=== PATIENT | female | born 1985 | race Two or more races ===

== ENCOUNTER 2018-05-17 06:59 | Emergency (ER) | payer OTHER ==
[~2018-05-17] VITALS: Ht 162.6 cm; Wt 55.4 kg
[2018-05-17] MEDS ORDERED: OXYMETAZOLINE NASAL SPRAY 0.05%,30ML ONE (07:29)
--- NOTE | 2018-05-17 07:43 | NUR ---
PT REPORTS TURBINATE SURG/TONSILLECTOMY 2 WEEKS AGO AND STARTED HAVING A NOSE BLEED YESTERDAY. MD AT BEDSIDE.
[2018-05-17] MEDS ORDERED: PHENYLEPHRINE NASAL 1%, 30ML DROPS NAS ONE (08:00)
[2018-05-17] MEDS ORDERED: PHENYLEPHRINE 10 MG/ML ONE (08:32)
--- NOTE | 2018-05-17 08:39 | NUR ---
CALLED PHARMACY AND ASKED THEM TO SEND NEOSYNEPHRINE DROPS. THEY WILL SEND IT.
--- NOTE | 2018-05-17 09:00 | NUR ---
PT IS RESTING IN BED, NO PACKING IN NOSE, BLEEDING IS CONTROLLED. PT IS ALERT, ORIENTED, WITH NAD. PT IS CONNECTED TO THE MONITOR. CALL LIGHT WITHIN REACH.
[2018-05-17] MEDS ORDERED: OXYcodone/APAP 5/325MG TABLET ONE (09:22)
[2018-05-17] MEDS ORDERED: OXYcodone/APAP 5/325MG TABLET PO ONE (09:30)
--- NOTE | 2018-05-17 09:33 | NUR ---
BREAK RN: PT MEDICATED FOR 10/10 PAIN ORDERED. REPORT TO FIORDALIZA MADDOX.
[2018-05-17 09:59] VITALS: BP 143/86
--- NOTE | 2018-05-17 11:33 | NUR ---
Patient given discharge instructions and they have confirmed that they understand the instructions. Patient ambulatory with steady gait.
== END 2018-05-17 11:35 | disposition home or self-care (01) ==
LOC: ED 10:54
DX: R04.0 Epistaxis (principal)
CPT/HCPCS: 30905; 99284

== ENCOUNTER 2019-12-24 05:43 | Day surgery (SDC) | payer OTHER ==
[~2019-12-24] VITALS: Ht 160 cm; Wt 58.0 kg
[2019-12-24 06:35] VITALS: BP 118/84
[2019-12-24] MEDS ORDERED: OXYMETAZOLINE NASAL SPRAY 0.05%, 15ML ONE (06:47)
[2019-12-24] MEDS ORDERED: BACITRACIN OINT 500U/GM, 15 GM ONE (06:47)
[2019-12-24] MEDS ORDERED: LIDOCAINE/PF 1%-EPI 1:200K, 30 ML ONE (06:47)
[2019-12-24 06:53] LABS: HCG UR SG 1.023 (1.003-1.030)
[2019-12-24] MEDS ORDERED: CHLORHEXIDINE 15 ML UDC MM ONE (07:00)
[2019-12-24] MEDS ORDERED: LACTATED RINGERS 1,000 ML IV SCH (07:00)
[2019-12-24] MEDS ORDERED: PROP20TA PO (07:01)
[2019-12-24] MEDS ORDERED: MIDAZOLAM 1 MG/ML, 2ML ONE (07:14)
[2019-12-24] MEDS ORDERED: FENTANYL PF 100 MCG/2ML ONE (07:14)
[2019-12-24] MEDS ORDERED: LABETALOL 5MG/ML, 20ML IV PRN (07:30)
[2019-12-24] MEDS ORDERED: OXYcodone 5 MG/5 ML ORAL.SOL UDC PO PRN (07:30)
[2019-12-24] MEDS ORDERED: PROMETHAZINE 25 MG/ML, 1ML IVPush PRN (07:30)
[2019-12-24] MEDS ORDERED: HYDROmorphone 1 MG/ML, 1ML INJ IVPush PRN (07:30)
[2019-12-24] MEDS ORDERED: EPHEDRINE 50 MG/ML, 1ML IVPush PRN (07:30)
[2019-12-24] MEDS ORDERED: FENTANYL PF 100 MCG/2ML IV PRN (07:30)
[2019-12-24] MEDS ORDERED: hydrALAzine 20 MG/ML, 1ML IV PRN (07:30)
[2019-12-24] MEDS ORDERED: ONDANSETRON 2MG/ML, 2ML IVPush PRN (07:30)
[2019-12-24] MEDS ORDERED: MEPERIDINE/PF 25MG/0.5ML IVPush PRN (07:30)
[2019-12-24] MEDS ORDERED: ACETAMINOPHEN 325 MG TABLET PO PRN (07:30)
[2019-12-24] MEDS ORDERED: COCAINE TOPICAL SOLN 4%, 4ML ONE (07:38)
[2019-12-24] MEDS ORDERED: EPINEPHRINE TOPICAL SOLN 1 MG/ML, 30ML ONE (07:38)
[2019-12-24] MEDS ORDERED: KETOROLAC 30 MG/1 ML ONE ×2 (07:56)
[2019-12-24] MEDS ORDERED: DEXAMETHASONE 4 MG/ML, 1ML ONE (07:57)
[2019-12-24] MEDS ORDERED: LIDOCAINE-MPF 2% ,5ML ONE (07:57)
[2019-12-24] MEDS ORDERED: ONDANSETRON 2MG/ML, 2ML ONE (07:57)
[2019-12-24] MEDS ORDERED: PROPOFOL 10 MG/ML, 20ML ONE (07:57)
[2019-12-24] MEDS ORDERED: SUCCINYLCHOLINE 20 MG/ML, 10ML ONE (07:57)
== END 2019-12-24 10:20 | disposition home or self-care (01) ==
LOC: OUT 05:43
PROVIDERS: ATTEND Otolaryngology
DX: J32.8 Other chronic sinusitis (principal); J34.3 Hypertrophy of nasal turbinates; J34.89 Other specified disorders of nose and nasal sinuses; Z20.828 Contact with and (suspected) exposure to other viral communicable diseases; Z88.1 Allergy status to other antibiotic agents; Z88.8 Allergy status to other drugs, medicaments and biological substances; Z90.710 Acquired absence of both cervix and uterus; Z98.890 Other specified postprocedural states; Z79.899 Other long term (current) drug therapy; Z72.89 Other problems related to lifestyle; Z86.73 Personal history of transient ischemic attack (TIA), and cerebral infarction without residual deficits
CPT/HCPCS: 30930; 31295; 31298; 31299; 36415; 81025; 87635; C9122; J0330; J1100; J1885; J2250; J2405; J2704; J3010; J7120